=== PATIENT | female | born 1955 | race Caucasian/White ===

== ENCOUNTER 2021-11-03 12:32 | Outpatient (CLI) | payer BC ==
[2021-11-03 13:51] LABS: Hemoglobin 13.3 g/dL (12.0-15.5); Mean Corpuscular HGB CONC 33.1 g/dL (32.0-36.0); Mean Corpuscular Hemoglobin 30.4 pg (27.0-33.0); Mean Corpuscular Volume 91.8 fl (81.6-98.3); Mean Platelet Volume 10.3 fl (7.4-10.4); Platelet Count 155 10x3/uL (150-450); RBC Distribution Width 12.4 % (11.5-14.5); Red Blood Cell (RBC) Count 4.38 10x6/uL (3.90-5.03); White Blood Cell (WBC) Count 4.5 10x3/uL (3.5-10.5)
[2021-11-03 14:07] LABS: Anion Gap 12 mmol/L (10-20); BUN (Urea Nitrogen) 10 mg/dL (9.8-20.1); Calc. Creatinine Clearance 0 mL/min (70-130); Calcium 9.3 mg/dL (7.8-10.44); Carbon Dioxide 29 mmol/L (23-31); Chloride 103 mmol/L (98-107); Glucose 96 mg/dL (80-115); Potassium 4.5 mmol/L (3.5-5.1); Sodium 139 mmol/L (136-145)
[2021-11-03 23:36] LABS: SARS-CoV-2 PCR by NAA DETECTED (NotDetected)
== END 2021-11-03 12:33 | disposition home or self-care (01) ==
LOC: CSHLAB 12:32
PROVIDERS: ATTEND Obstetrics & Gynecology
DX: U07.1 COVID-19 (principal)
CPT/HCPCS: 80048; 85027; 86850; 86900; 86901; 93005; 93010; U0003; U0005

== ENCOUNTER 2021-11-30 16:40 | Outpatient (CLI) | payer BC ==
[2021-11-30 17:47] LABS: Hemoglobin 13.1 g/dL (12.0-15.5); Mean Corpuscular HGB CONC 33.3 g/dL (32.0-36.0); Mean Corpuscular Hemoglobin 30.8 pg (27.0-33.0); Mean Corpuscular Volume 92.3 fl (81.6-98.3); Mean Platelet Volume 10.6 fl (7.4-10.4); Platelet Count 128 10x3/uL (150-450); RBC Distribution Width 12.5 % (11.5-14.5); Red Blood Cell (RBC) Count 4.26 10x6/uL (3.90-5.03); White Blood Cell (WBC) Count 5.2 10x3/uL (3.5-10.5)
== END 2021-11-30 16:41 | disposition home or self-care (01) ==
LOC: CSHLAB 16:40
PROVIDERS: ATTEND Obstetrics & Gynecology
DX: Z01.812 Encounter for preprocedural laboratory examination (principal); Z86.16 Personal history of COVID-19; D06.9 Carcinoma in situ of cervix, unspecified
CPT/HCPCS: 85027; 86850; 86900; 86901

== ENCOUNTER 2021-12-06 07:37 | Day surgery (SDC) | payer BC ==
[2021-11-01 11:52] VITALS: BMI 22.1
[2021-11-30 17:47] LABS: Hemoglobin 13.1 g/dL (12.0-15.5); Mean Corpuscular HGB CONC 33.3 g/dL (32.0-36.0); Mean Corpuscular Hemoglobin 30.8 pg (27.0-33.0); Mean Corpuscular Volume 92.3 fl (81.6-98.3); Mean Platelet Volume 10.6 fl (7.4-10.4); Platelet Count 128 10x3/uL (150-450); RBC Distribution Width 12.5 % (11.5-14.5); Red Blood Cell (RBC) Count 4.26 10x6/uL (3.90-5.03); White Blood Cell (WBC) Count 5.2 10x3/uL (3.5-10.5)
[2021-12-06] MEDS ORDERED: Lidocaine 1% MPF 2 ML VIAL ONE (08:12)
[2021-12-06] MEDS ORDERED: Potassium Iodide Solution 14 ML BOT ONE (09:00)
[2021-12-06] MEDS ORDERED: PROPOFOL 20 ML ONE (09:39)
[2021-12-06] MEDS ORDERED: Fentanyl 100 MCG/2 ML VIAL ONE (09:40)
[2021-12-06] MEDS ORDERED: Midazolam HCl 2 mg/2 ml Vial ONE (09:40)
[2021-12-06] MEDS ORDERED: Ketorolac Tromethamine 30 MG/ML VIAL ONE (09:40)
[2021-12-06] MEDS ORDERED: Ondansetron PF 4 MG/2 ML Vial ONE (09:40)
[2021-12-06] MEDS ORDERED: Dexamethasone 20 MG/5 ML VIAL ONE (09:40)
[2021-12-06] MEDS ORDERED: ceFAZolin 2 GM/Dextrose 50 ML IVPB ONE (09:49)
[2021-12-06] MEDS ORDERED: Lidocaine 1% w/Epinephrine 1:100K 30 ML VIAL ONE (10:18)
== END 2021-12-06 12:00 | disposition home or self-care (01) ==
LOC: CSHSDC 07:37
PROVIDERS: ATTEND Obstetrics & Gynecology
PROC: 0UBC7ZX Excision of Cervix, Via Natural or Artificial Opening, Diagnostic (ICD-10-PCS; principal; 2021-12-06)
DX: N87.1 Moderate cervical dysplasia (principal); Z86.16 Personal history of COVID-19; Z79.83 Long term (current) use of bisphosphonates; Z79.899 Other long term (current) drug therapy
CPT/HCPCS: 85027; 86850; 86900; 86901; 88307; C1713; J0690; J1100; J1885; J2250; J2405; J2704; J3010

== ENCOUNTER 2024-11-23 14:25 | Outpatient (CLI) | payer MEDICARE ==
[~2024-11-23 14:25] MED LIST: Magnevist 469MG/ML 20 ML VIAL ONE
== END 2024-11-23 14:26 | disposition home or self-care (01) ==
LOC: CSHMRI 14:25
PROVIDERS: ATTEND Internal Medicine Gastroenterology
DX: K70.30 Alcoholic cirrhosis of liver without ascites (principal); R16.0 Hepatomegaly, not elsewhere classified; K74.00 Hepatic fibrosis, unspecified
CPT/HCPCS: 36415; 74183; 82565

== ENCOUNTER 2025-06-02 08:57 | Outpatient (CLI) | payer MEDICARE ==
[2025-06-02 11:38] LABS: Estimated GFR - POC 50.0
== END 2025-06-02 08:58 | disposition home or self-care (01) ==
LOC: CSHMRI 08:57
PROVIDERS: ATTEND Internal Medicine Gastroenterology
DX: K70.30 Alcoholic cirrhosis of liver without ascites (principal); R16.0 Hepatomegaly, not elsewhere classified; D69.6 Thrombocytopenia, unspecified
CPT/HCPCS: 36415; 74183; 82565